=== PATIENT | female | born 2000 | race Caucasian/White ===

== ENCOUNTER 2024-08-10 11:26 | Emergency (ER) | payer OTHER, SELFPAY ==
[2024-08-10 11:56] VITALS: BP 108/65; PULSE 78; TEMP 36.8; O2SAT 99; BMI 17.9
[2024-08-10] MEDS: ONDANSETRON 4 MG RAPDIS TABLET SL (12:39)
--- NOTE | 2024-08-10 15:00 | ED.NAVMDI1 ---
HPI - Nausea/Vomiting/Diarrhea General Chief complaint: Nausea/Vomiting/Diarrhea Stated complaint: WEAK, VOMITING, NAUSEA Time Seen by Provider: 08/10/24 12:21 Source: patient Mode of arrival: walk-in Limitations: no limitations History of Present Illness HPI Narrative: Patient presented to us with 2 days history of runny nose associated with generalized body ache and today nausea and vomiting this morning, she maybe vomited 2 times or 3 No diarrhea no other complaints Related Data Previous Rx's ?Medication ?Instructions ?Recorded ondansetron 4 mg disintegrating 4 mg PO Q8H PRN nausea and 08/10/24 tablet vomiting 3 days #10 tabs Allergies Allergy/AdvReac Type Severity Reaction Status Date / Time latex AdvReac Rash Verified 08/10/24 12:00 Review of Systems ROS Status of ROS 10 or more systems reviewed and unremarkable except as noted in history and below PFSH PFSH Social History Little interest or pleasure in doing things: not at all Feeling down, depressed, or hopeless: not at all Exam Narrative Exam Narrative: Nurses notes and vital signs reviewed and patient is not hypoxic. General: Well-appearing and in no apparent distress. Skin: Warm, dry, no pallor noted. No rash. Head: Normocephalic, atraumatic. Neck: Supple, non-tender. Eye: Pupils are equal, round and EOMI. No scleral icterus. Ears, Nose, Mouth, and Throat: TM are clear, no nasal mucosal hypertrophy. Oral mucosa is moist, no posterior oropharynx erythema, uvula is mid-line Cardiovascular: Regular Rate and Rhythm without murmur, gallop or rub. Respiratory: No accessory muscle use or respiratory distress. Lungs are clear to auscultation, no wheezing, rales or rhonchi Chest Wall: no tenderness Back: No midline thoracic or lumbar vertebral tenderness. No CVA tenderness Musculoskeletal: normal ROM, no calf or popliteal tenderness, no lower extremity edema/swelling GI: Abdomen is soft, non-distended. Normal bowel sounds. No masses appreciated. No tenderness to palpation. No rebound, guarding, or rigidity noted. Neurological: A&O x4. No cranial nerve dysfunction observed. No truncal ataxia. Moves all extremities. Sensation intact. Psychiatric: Cooperative and interactive. Normal mood and affect. Constitutional Vital Signs, click to edit/add: Last Vital Signs Temp 98.2 F 08/10/24 11:56 Pulse 78 08/10/24 11:56 Resp 18 08/10/24 11:56 BP 108/65 08/10/24 11:56 Pulse Ox 99 08/10/24 11:56 O2 Del Method Room Air 08/10/24 11:56 Course Vital Signs Vital signs: Vital Signs Temperature 98.2 F 08/10/24 11:56 Pulse Rate 78 08/10/24 11:56 Respiratory Rate 18 08/10/24 11:56 Blood Pressure 108/65 08/10/24 11:56 Pulse Oximetry 99 08/10/24 11:56 Oxygen Delivery Method Room Air 08/10/24 11:56 Temperature 98.2 F 08/10/24 11:56 Pulse Rate 78 08/10/24 11:56 Respiratory Rate 18 08/10/24 11:56 Blood Pressure 108/65 08/10/24 11:56 Pulse Oximetry 99 08/10/24 11:56 Oxygen Delivery Method Room Air 08/10/24 11:56 MDM - Nausea/Vomiting/Diarrhea MDM Narrative Medical decision making narrative: Patient presented to us with nasal congestion as well as nausea Presenting mostly with viral illness the patient will be started on supportive care mostly Zofran After Zofran the patient was tolerating p.o. intake she was discharged home to continue supportive care The patient is to follow up with primary care physician in next 2-3 days or to return to the emergency department should any of the signs or symptoms worsen or new symptoms develop. The patient agrees with the following Diagnosis and Treatment plan and the patient will be discharged home. Discharge Plan Discharge Chief Complaint: Nausea/Vomiting/Diarrhea Clinical Impression: Gastroenteritis Patient Disposition: Home, Self-Care Time of Disposition Decision: 12:28 Condition: Good Prescriptions / Home Meds: New ondansetron 4 mg tablet,disintegrating 4 mg PO Q8H PRN (Reason: nausea and vomiting) 3 Days Qty: 10 0RF Print Language: Swedish Instructions: Gastroenteritis (DC) Referrals: JULIUS MONTAGUE [Primary Care Provider] - 1 week Discharge Date/Time: 08/10/24 12:56
== END 2024-08-10 12:56 | disposition home or self-care (01) ==
PROVIDERS: Emergency Provider Emergency Medicine; PCP Nurse Practitioner Family
DX: K52.9 Noninfective gastroenteritis and colitis, unspecified (principal); R09.81 Nasal congestion
CPT/HCPCS: 99283; Q0162